=== PATIENT | female | born 1995 | race Caucasian/White ===

== ENCOUNTER 2017-09-08 21:22 | Emergency (ER) | payer OTHER ==
[2017-09-08] MEDS: ALBUTEROL 0.083% (NEB) 2.5 MG/3 ML AMP NEB (22:40)
[2017-09-08] MEDS: IPRATROPIUM (NEB) 0.5 MG/2.5 ML AMP NEB (22:40)
== END 2017-09-08 23:18 | disposition home or self-care (01) ==
LOC: FTE 21:22
DX: J45.901 Unspecified asthma with (acute) exacerbation (principal); J20.9 Acute bronchitis, unspecified; S70.261A Insect bite (nonvenomous), right hip, initial encounter; W57.XXXA Bitten or stung by nonvenomous insect and other nonvenomous arthropods, initial encounter; Y92.9 Unspecified place or not applicable
CPT/HCPCS: 94664; 99284-25

== ENCOUNTER 2017-09-12 16:57 | Emergency (ER) | payer SELFPAY, OTHER | END 2017-09-12 19:00 | disposition home or self-care (01) | LOC: FTE 16:57 | DX: J06.9 Acute upper respiratory infection, unspecified (principal); J45.909 Unspecified asthma, uncomplicated | CPT/HCPCS: 99283 ==